=== PATIENT | female | born 1955 | race American Indian/Alaskan Native ===

== ENCOUNTER 2019-08-31 21:20 | Emergency (ER) | payer MEDICARE ==
[2019-08-31] MEDS ORDERED: HYDROmorphone 1 MG/1 ML INJ ONE (21:32)
[2019-08-31] MEDS ORDERED: HYDROmorphone 1 MG/1 ML INJ IV ONE ×2 (21:40→23:55)
[2019-08-31] MEDS ORDERED: ONDANSETRON 4 MG ODT TAB PO PRN (23:03)
[2019-08-31] MEDS ORDERED: ACETAMINOPHEN 325 MG TAB PO PRN (23:03)
[2019-08-31] MEDS ORDERED: IBUPROFEN 400 MG TAB PO PRN (23:03)
--- NOTE | 2019-08-31 23:10 | Emergency Department Report ---
ED General Adult HPI - General Chief complaint: Extremity Injury, Lower Stated complaint: LEG PAIN PUI?: No Time Seen by Provider: 08/31/19 21:27 Source: EMS, RN notes reviewed, old records reviewed Mode of arrival: Stretcher Limitations: Physical Limitation - History of Present Illness Initial comments: Patient is a 63-year-old female. She is not known to myself previously. The patient was recently admitted to this hospital. She has a history of hypertension, type 2 diabetes, obesity, and bilateral total knee replacements, and a chronic pain syndrome. She was recently admitted to this hospital for bilateral femur fractures. She was seen by our orthopedist, Dr. Mccoy, and he surgically fixated the aforementioned fractures. The patient was discharged back to the skilled nursing earlier on today. The patient is sent to the emergency room for unclear reasons with a complaint of bilateral leg pain. The patient indicates the pain has been present for a long time. In addition, as per review of patient's discharge prescriptions, she was discharged with oxycodone, 5/325. The patient was medically cleared and discharged earlier on today. In addition, case management have been following along, and helping to arrange outpatient follow-up. In the emergency room, the patient's chronic pain was treated with hydromorphone which improved her symptoms. Patient was also recently ruled out for COVID at this hospital. Apparently, the receiving skilled nursing is now declining/refusing to take the patient back for unclear reasons, nursing team tells me it is because the patient did not sign consent for treatment. Location: left, right, lower extremity Severity scale (0 -10): 6 Consistency: constant Improves with: medication, rest Worsens with: movement - Related Data Previous Rx's Medication Instructions Recorded Last Taken Type Enoxaparin 40 mg SUB-Q QDAY 42 Days syringe 08/31/19 Unknown Rx Multivitamin Tab [Multiple Vitamin 1 each PO QDAY #30 tablet 08/31/19 Unknown Rx TAB (Theragran)] oxyCODONE /ACETAMINOPHEN [Percocet 1 tab PO Q6H PRN #10 tablet 08/31/19 Unknown Rx 5/325 mg] ALPRAZolam [Xanax TAB] 0.25 mg PO TID PRN #10 tab 09/01/19 Unknown Rx Naproxen [Naprosyn] 500 mg PO BID #10 tablet 09/01/19 Unknown Rx oxyCODONE /ACETAMINOPHEN [Percocet 2 tab PO Q6HR PRN #12 tablet 09/01/19 Unknown Rx 5/325] Allergies Allergy/AdvReac Type Severity Reaction Status Date / Time codeine Allergy Unknown Verified 08/25/19 15:17 lisinopril AdvReac Intermediate Unknown Verified 08/25/19 15:17 ED Review of Systems ROS: Stated complaint: LEG PAIN Other details as noted in HPI Constitutional: denies: fever Musculoskeletal: myalgia ED Past Medical Hx - Past Medical History Hx Hypertension: Yes (+2FS) Hx Diabetes: Yes Additional medical history: rolan knee pain, chronic pain - Surgical History Additional Surgical History: rolan knee replacements - Social History Smoking Status: Current Every Day Smoker Substance Use Type: Alcohol, Marijuana - Medications Home Medications: Home Medications Medication Instructions Recorded Confirmed Last Taken Type Enoxaparin 40 mg SUB-Q QDAY 42 Days syringe 08/31/19 08/31/19 Unknown Rx Multivitamin Tab [Multiple Vitamin 1 each PO QDAY #30 tablet 08/31/19 08/31/19 Unknown Rx TAB (Theragran)] oxyCODONE /ACETAMINOPHEN [Percocet 1 tab PO Q6H PRN #10 tablet 08/31/19 08/31/19 Unknown Rx 5/325 mg] ALPRAZolam [Xanax TAB] 0.25 mg PO TID PRN #10 tab 09/01/19 Unknown Rx Naproxen [Naprosyn] 500 mg PO BID #10 tablet 09/01/19 Unknown Rx oxyCODONE /ACETAMINOPHEN [Percocet 2 tab PO Q6HR PRN #12 tablet 09/01/19 Unknown Rx 5/325] ED Physical Exam - General Limitations: Physical Limitation General appearance: alert, anxious, in distress, obese - Head Head exam: Present: atraumatic, normocephalic - Eye Eye exam: Present: normal appearance, EOMI. Absent: nystagmus - ENT ENT exam: Present: normal exam, normal orophraynx, mucous membranes moist, normal external ear exam - Neck Neck exam: Present: normal inspection, full ROM. Absent: tenderness, meningismus - Respiratory Respiratory exam: Present: normal lung sounds bilaterally. Absent: respiratory distress, wheezes, rales, rhonchi, chest wall tenderness, accessory muscle use, decreased breath sounds, prolonged expiratory - Cardiovascular Cardiovascular Exam: Present: normal rhythm, tachycardia, normal heart sounds. Absent: systolic murmur, diastolic murmur, rubs, gallop - GI/Abdominal GI/Abdominal exam: Present: soft. Absent: distended, tenderness, guarding, rebound, rigid, pulsatile mass - Extremities Exam Extremities exam: Present: normal inspection, normal capillary refill, other (2+ pulses noted in the bilateral upper and lower extremities. There is no redness, pus or streaking. Surgical sites on the bilateral lower extremities appear clean, without redness, pus, streaking or discharge. Patient has bony tenderness over her surgical sites. It is appropriate postoperative tenderness.). Absent: calf tenderness - Back Exam Back exam: Present: normal inspection. Absent: tenderness, CVA tenderness (R), paraspinal tenderness, vertebral tenderness - Neurological Exam Neurological exam: Present: alert, other (No facial droop. Tongue midline. Extraocular movements intact bilaterally. Facial sensation intact to light touch in V1, V2, V3 distribution bilaterally. 5 and a 5 strength in 4 extremities. Sensation intact to light touch in 4 extremities.) - Psychiatric Psychiatric exam: Present: anxious - Skin Skin exam: Present: warm ED Course Vital Signs 08/31/19 08/31/19 08/31/19 21:36 21:37 22:00 Temperature 98.7 F Pulse Rate 105 H 105 H 104 H Respiratory 18 18 18 Rate Blood Pressure 144/66 Blood Pressure 144/66 127/81 [Right] O2 Sat by Pulse 99 99 97 Oximetry 08/31/19 09/01/19 09/01/19 22:21 06:36 12:34 Temperature Pulse Rate 103 H 101 H Respiratory 17 19 18 Rate Blood Pressure Blood Pressure 136/85 113/48 [Right] O2 Sat by Pulse 97 97 Oximetry ED Medical Decision Making - Lab Data Vital Signs 08/31/19 08/31/19 08/31/19 21:36 21:37 22:00 Temperature 98.7 F Pulse Rate 105 H 105 H 104 H Respiratory 18 18 18 Rate Blood Pressure 144/66 Blood Pressure 144/66 127/81 [Right] O2 Sat by Pulse 99 99 97 Oximetry 08/31/19 22:21 Temperature Pulse Rate 103 H Respiratory 17 Rate Blood Pressure Blood Pressure 136/85 [Right] O2 Sat by Pulse 97 Oximetry - Radiology Data Radiology results: report reviewed, image reviewed Print Report Referring Physician: SONI CAMP Patient Name: LA MCKNIGHT Date of : 1955 Sex: Female Report Date: 2019-08-24 Report Status: Finalized Findings [address] [address] XRay Report Signed Patient: LA MCKNIGHT MR#: [id number] 4 : 1955 Acct:[id number] Age/Sex: 63 / F ADM Date: 08/24/19 Loc: ED Attending Dr: Ordering Physician: Soni Jacinto MD Date of Service: 08/24/19 Procedure(s): XR knee BILAT 3V Accession Number(s): [id number] cc: Soni Jacinto MD Fluoro Time In Minutes: BILATERAL KNEES 8 VIEWS INDICATION / CLINICAL INFORMATION: fall bilateral knee pain. COMPARISON: None available. FINDINGS: There are fractures of the distal femurs bilaterally more severe on the left than the right. The left-sided fracture is comminuted and moderately displaced. The right-sided fracture is more linear and moderately displaced. Bilateral knee prostheses are present. Signer Name: Durga Daiz MD FACR Signed: 08/24/2019 9:15 AM Workstation Name: [id number] Transcribed By: MS Dictated By: Durga Diaz MD Electronically Authenticated By: Durga Diaz MD Signed Date/Time: 08/24/19914 DD/ 3 TD/TT: Referring Physician: ANNEMARIE MARRERO Patient Name: LA MCKNIGHT Date of : 1955 Sex: Female Report Date: 2019-09-01 Report Status: Finalized Findings [address] [address] XRay Report Signed with Addenda Patient: LA MCKNIGHT MR#: [id number] 4 : 1955 Acct:[id number] Age/Sex: 63 / F ADM Date: 08/31/19 Loc: ED Attending Dr: Ordering Physician: ANNEMARIE MARRERO MD Date of Service: 08/31/19 Procedure(s): XR femur BILAT 2+V Accession Number(s): [id number] cc: ANNEMARIE MARRERO MD Fluoro Time In Minutes: ADDENDUM The periprosthetic fracture was actually present on a prior radiograph from 08/24/2019. Although the periprosthetic fracture is acute, this is a known finding from the prior exam in the interim medullary abel was placed for interval fixation of the periprosthetic distal femoral fracture. No new fracture is identified when compared to 08/24/2019. Signer Name: Ozzie Interiano MD Signed: 09/01/2019 1:27 AM Workstation Name: [id number] Addendum Transcribed By: TAMARA Addendum Dictated By: Ozzie Interiano MD Addendum Electronically Authenticated By: Ozzie Interiano MD Addendum Signed Date/Time: 09/01/19126 DD/ /15/125 TD/TT: / Left femur 4 views I NDICATION: Left femur pain following injury. IMPRESSION: There is a acute appearing impacted periprosthetic fracture identified involving the distal left femur. Osteopenia. Prominent thinning involving the mid shaft of the femur. Osteopenia. Signer Name: Ozzie Interiano MD Signed: 09/01/2019 12:07 AM Workstation Name: [id number] Transcribed By: Dictated By: Ozzie Interiano MD Electronically Authenticated By: Ozzie Interiano MD Signed Date/Time: 09/01/19 0007 DD/ 0005 TD/TT: - Medical Decision Making Differential diagnosis, including but not limited to: Chronic pain, narcotic dependence, femur fracture, case management patient Assessment and plan: 63-year-old female with chronic pain syndrome, discharged within the past 12 hours from this hospital to an outpatient skilled nursing, who was sent to the emergency room for acute on chronic pain. Old medical records are reviewed, x-rays reviewed, fluoroscopic images reviewed, patient does not appear to have an emergent medical condition at this time, the main issue here appears to be pain control which we have achieved with hydromorphone. Her tachycardia has resolved on my examination. Old x-rays are reviewed, and her exam is not consistent with cellulitis, compartment syndrome. This patient does not have an emergent medical condition at this time, and she does not meet criteria for hospitalization. Nursing team getting in touch with [place] [facility], who is apparently refusing/declining to take the patient back because of signatures on paperwork. We will continue the patient's home medications, case management consultation has been requested. At the moment, the patient is medically suitable for discharge. We will discharge the patient, but case management will need to make appropriate arrangements Critical care attestation.: If time is entered above; I have spent that time in minutes in the direct care of this critically ill patient, excluding procedure time. ED Disposition Clinical Impression: Chronic pain syndrome, Case management patient Bilateral femoral fractures Qualifiers: Encounter type: subsequent encounter Fracture type: closed Fracture healing: with routine healing Qualified Code(s): S72.91XD - Unspecified fracture of right femur, subsequent encounter for closed fracture with routine healing Disposition: DC/TX-70 ANOTHER TYPE HLTHCARE Is pt being admited?: No Does the pt Need Aspirin: No Condition: Stable Additional Instructions: Please continue current outpatient medications. Please follow-up with an outpatient primary care doctor or orthopedist within the next 5 to 7 days. Please return to the emergency room right away with new pain, worsening pain, migration of pain, rectal vomiting, change in mental status, confusion, inability to tolerate liquid feeds, new, worsened or different symptoms not present on the initial emergency room evaluation Referrals: MIKALA MCCOY MD [Staff Physician] - 3-5 Days MAYCO HOLLAND MD [Staff Physician] - 3-5 Days Time of Disposition: 23:12 (d/c to skilled nursing pending case managemtn)
--- NOTE | 2019-09-01 00:11 | XRay Report ---
Left femur 4 views INDICATION: Left femur pain following injury. IMPRESSION: There is a acute appearing impacted periprosthetic fracture identified involving the dist al left femur. Osteopenia. Prominent thinning involving the mid shaft of the femur. Osteopenia. Signer Name: Ozzie Interiano MD Signed: 09/01/2019 12:07 AM Workstation Name: [id number]
[2019-09-01] MEDS: oxyCODONE /ACETAMINOPHEN 5-325MG TAB PO PRN ×3 (00:29→12:34)
[2019-09-01 06:38] VITALS: BP 113/48
[2019-09-01] MEDS ORDERED: ENOXAPARIN 40 MG/0.4 ML INJ SUB-Q SCH (10:00)
[2019-09-01] MEDS ORDERED: MULTIVITAMINS ,THERAPEUTIC TAB PO SCH (10:00)
== END 2019-09-01 15:05 | disposition other institution (70) ==
LOC: ED 21:20
DX: S72.92XD Unspecified fracture of left femur, subsequent encounter for closed fracture with routine healing (principal); S72.91XD Unspecified fracture of right femur, subsequent encounter for closed fracture with routine healing; I10 Essential (primary) hypertension; E11.9 Type 2 diabetes mellitus without complications; F17.200 Nicotine dependence, unspecified, uncomplicated; F12.10 Cannabis abuse, uncomplicated; Z96.653 Presence of artificial knee joint, bilateral; Z79.899 Other long term (current) drug therapy; Z88.8 Allergy status to other drugs, medicaments and biological substances; X58.XXXD Exposure to other specified factors, subsequent encounter
CPT/HCPCS: 73552; 96372; 96374; 96376; 99284; J1170; J1650

== ENCOUNTER 2019-09-28 20:37 | Emergency (ER) | payer MEDICARE ==
--- NOTE | 2019-09-28 21:03 | Emergency Department Report ---
HPI - General Time Seen by Provider: 09/28/19 20:45 - HPI HPI: Room 9 The patient is a 63-year-old female present with a chief complaint of suicidal statement. The patient is a resident at [facility] and states she was frustrated with the nursing staff because she cannot get her medications. She states she told the nurses to roll her outside so she could smoke a cigarette and that she should play in traffic. [facility] to the ED for evaluation. The patient denies suicidal ideation ED Past Medical Hx - Past Medical History Hx Hypertension: Yes (+2FS) Hx Diabetes: Yes Additional medical history: rolan knee pain, chronic pain - Surgical History Additional Surgical History: rolan knee replacements - Family History Family history: no significant - Social History Smoking Status: Current Every Day Smoker Substance Use Type: Alcohol - Medications Home Medications: Home Medications Medication Instructions Recorded Confirmed Last Taken Type Enoxaparin 40 mg SUB-Q QDAY 42 Days syringe 08/31/19 08/31/19 Unknown Rx Multivitamin Tab [Multiple Vitamin 1 each PO QDAY #30 tablet 08/31/19 08/31/19 Unknown Rx TAB (Theragran)] oxyCODONE /ACETAMINOPHEN [Percocet 1 tab PO Q6H PRN #10 tablet 08/31/19 08/31/19 Unknown Rx 5/325 mg] ALPRAZolam [Xanax TAB] 0.25 mg PO TID PRN #10 tab 09/01/19 Unknown Rx Naproxen [Naprosyn] 500 mg PO BID #10 tablet 09/01/19 Unknown Rx oxyCODONE /ACETAMINOPHEN [Percocet 2 tab PO Q6HR PRN #12 tablet 09/01/19 Unknown Rx 5/325] ED Review of Systems ROS: Stated complaint: MEDICAL CLEARANCE Other details as noted in HPI Constitutional: no symptoms reported Respiratory: no symptoms reported Endocrine: no symptoms reported Psychiatric: denies: suicidal thoughts Physical Exam - Physical Exam Physical Exam: GENERAL: The patient is well-developed well-nourished female sitting on stretcher not appearing to be in acute distress. [] HEENT: Normocephalic. Atraumatic. Extraocular motions are intact. Patient has moist mucous membranes. NECK: Supple. Trachea midline CHEST/LUNGS: Clear to auscultation. There is no respiratory distress noted. HEART/CARDIOVASCULAR: Regular. There is no tachycardia. There is no gallop rub or murmur. ABDOMEN: Abdomen is soft, nontender. Patient has normal bowel sounds. There is no abdominal distention. SKIN: There is no rash. There is no edema. There is no diaphoresis. NEURO: The patient is awake, alert, and oriented. The patient is cooperative. The patient has normal speech MUSCULOSKELETAL: There is no evidence of acute injury. ED Medical Decision Making - Lab Data Result diagrams: 09/28/19 21:36 09/28/19 21:36 Laboratory Tests 09/28/19 09/28/19 09/28/19 21:36 21:36 21:36 WBC 6.1 RBC 3.64 L Hgb 9.9 L Hct 30.9 MCV 85 MCH 27 L MCHC 32 RDW 19.4 H Plt Count 361 Lymph % (Auto) 26.2 [place] % (Auto) 10.1 H Eos % (Auto) 3.3 Baso % (Auto) 0.7 Lymph # 1.6 [place] # 0.6 Eos # 0.2 Baso # 0.0 Seg Neutrophils % 59.7 Seg Neutrophils # 3.7 Sodium 142 Potassium 4.2 Chloride 104.6 Carbon Dioxide 24 Anion Gap 18 BUN 12 Creatinine 0.7 Estimated GFR > 60 BUN/Creatinine Ratio 17 Glucose 95 Calcium 8.9 Urine Color Urine Turbidity Urine pH Ur Specific [place] Urine Protein Urine Glucose (UA) Urine Ketones Urine Blood Urine Nitrite Urine Bilirubin Urine Urobilinogen Ur Leukocyte Esterase Urine WBC (Auto) Urine RBC (Auto) U Epithel Cells (Auto) Urine Bacteria (Auto) Urine Mucus Salicylates < 0.3 L Urine Opiates Screen Urine Methadone Screen Acetaminophen Ur Barbiturates Screen Ur Phencyclidine Scrn Ur Amphetamines Screen U Benzodiazepines Scrn Urine Cocaine Screen U Marijuana (THC) Screen Drugs of Abuse Note Plasma/Serum Alcohol 09/28/19 09/28/19 09/28/19 21:36 21:36 Unknown WBC RBC Hgb Hct MCV MCH MCHC RDW Plt Count Lymph % (Auto) [place] % (Auto) Eos % (Auto) Baso % (Auto) Lymph # [place] # Eos # Baso # Seg Neutrophils % Seg Neutrophils # Sodium Potassium Chloride Carbon Dioxide Anion Gap BUN Creatinine Estimated GFR BUN/Creatinine Ratio Glucose Calcium Urine Color Yellow Urine Turbidity Slightly-cloudy Urine pH 5.0 Ur Specific [place] 1.026 Urine Protein <15 mg/dl Urine Glucose (UA) Neg Urine Ketones Neg Urine Blood Neg Urine Nitrite Neg Urine Bilirubin Neg Urine Urobilinogen 2.0 Ur Leukocyte Esterase Neg Urine WBC (Auto) 4.0 Urine RBC (Auto) 3.0 U Epithel Cells (Auto) 8.0 Urine Bacteria (Auto) 1+ Urine Mucus Few Salicylates Urine Opiates Screen Urine Methadone Screen Acetaminophen < 5.0 L Ur Barbiturates Screen Ur Phencyclidine Scrn Ur Amphetamines Screen U Benzodiazepines Scrn Urine Cocaine Screen U Marijuana (THC) Screen Drugs of Abuse Note Plasma/Serum Alcohol < 0.01 09/28/19 Unknown WBC RBC Hgb Hct MCV MCH MCHC RDW Plt Count Lymph % (Auto) [place] % (Auto) Eos % (Auto) Baso % (Auto) Lymph # [place] # Eos # Baso # Seg Neutrophils % Seg Neutrophils # Sodium Potassium Chloride Carbon Dioxide Anion Gap BUN Creatinine Estimated GFR BUN/Creatinine Ratio Glucose Calcium Urine Color Urine Turbidity Urine pH Ur Specific [place] Urine Protein Urine Glucose (UA) Urine Ketones Urine Blood Urine Nitrite Urine Bilirubin Urine Urobilinogen Ur Leukocyte Esterase Urine WBC (Auto) Urine RBC (Auto) U Epithel Cells (Auto) Urine Bacteria (Auto) Urine Mucus Salicylates Urine Opiates Screen Presumptive positive Urine Methadone Screen Presumptive negative Acetaminophen Ur Barbiturates Screen Presumptive negative Ur Phencyclidine Scrn Presumptive negative Ur Amphetamines Screen Presumptive negative U Benzodiazepines Scrn Presumptive positive Urine Cocaine Screen Presumptive negative U Marijuana (THC) Screen Presumptive negative Drugs of Abuse Note Disclamer Plasma/Serum Alcohol - Differential Diagnosis Suicidal ideation, adjustment disorder, anger Critical care attestation.: If time is entered above; I have spent that time in minutes in the direct care of this critically ill patient, excluding procedure time. ED Disposition Clinical Impression: Suicidal ideation Condition: Stable Referrals: MURALI AUGUSTINE MD [Primary Care Provider] - 3-5 Days
[2019-09-28 21:56] LABS: Basophils % (Auto) 0.7 % (0.0-1.8); Eosinophils # (Auto) 0.2 K/mm3 (0.0-0.4); Eosinophils % (Auto) 3.3 % (0.0-4.3); Hematocrit 30.9 % (30.3-42.9); Hemoglobin 9.9 gm/dl (10.1-14.3); Lymphocytes # (Auto) 1.6 K/mm3 (1.2-5.4); Lymphocytes % (Auto) 26.2 % (13.4-35.0); Mean Corpuscular HGB Conc 32 % (30-34); Mean Corpuscular Volume 85 fl (79-97); Monocytes # (Auto) 0.6 K/mm3 (0.0-0.8); Monocytes % (Auto) 10.1 % (0.0-7.3); Platelet Count 361 K/mm3 (140-440); Red Blood Count 3.64 M/mm3 (3.65-5.03); Red Cell Distribution Width 19.4 % (13.2-15.2)
[2019-09-28 22:15] LABS: BUN/Creatinine Ratio 17; Blood Urea Nitrogen 12 mg/dL (7-17); Calcium 8.9 mg/dL (8.4-10.2); Hemolysis Index 4
[2019-09-28] MEDS ORDERED: oxyCODONE /ACETAMINOPHEN 5-325MG TAB PO PRN (22:38)
[2019-09-28 23:28] LABS: Bacteria,Urine 1+ /HPF (Negative); Bilirubin,Urine NEG (Negative); Blood,Urine NEG (Negative); Color,Urine Yellow (Yellow); Mucus,Urine FEW /HPF; Protein,Urine <15 mg/dL mg/dL (Negative)
[2019-09-28 23:34] LABS: Amphetamine Screen,Urine PRESUMPTIVE NEGATIVE; Benzodiazepines Screen,Urine PRESUMPTIVE POSITIVE; Cannabinoid Screen,Urine PRESUMPTIVE NEGATIVE; Cocaine Screen,Urine PRESUMPTIVE NEGATIVE; Methadone Screen,Urine PRESUMPTIVE NEGATIVE; Opiate Screen,Urine PRESUMPTIVE POSITIVE
[2019-09-29 01:40] VITALS: BP 140/73
== END 2019-09-29 04:35 ==
LOC: ED 20:37
DX: R45.851 Suicidal ideations (principal); I10 Essential (primary) hypertension; E11.9 Type 2 diabetes mellitus without complications; F17.200 Nicotine dependence, unspecified, uncomplicated; Z79.899 Other long term (current) drug therapy
CPT/HCPCS: 36415; 80048; 80307; 80320; 81001; 85025; 99283; G0480

== ENCOUNTER 2019-11-16 16:47 | Emergency (ER) | payer MEDICARE ==
[2019-11-16 17:02] VITALS: BP 164/78
--- NOTE | 2019-11-16 18:39 | Emergency Department Report ---
ED General Adult HPI - General Chief complaint: Extremity Injury, Lower Stated complaint: FEET SWELLING Time Seen by Provider: 11/16/19 18:27 Source: patient Mode of arrival: Wheelchair Limitations: No Limitations - History of Present Illness Initial comments: Patient is 64 years old female with history of diabetes, hypertension, obstructive sleep apnea. Patient had a recent bilateral femoral fracture with internal fixation in August. Patient was just discharged from a rehab facility 5 days ago. Patient presented to the ER complaining of bilateral lower extremity swelling. Patient stated the symptoms started just after she was released from that facility. Patient denied any shortness of breath, chest pain, nausea or vomiting. Patient also denied any fever or chills. Severity scale (0 -10): 10 - Related Data Home Medications Medication Instructions Recorded Confirmed Last Taken Sertraline [Zoloft] 100 mg PO QDAY 09/29/19 09/29/19 Unknown Previous Rx's Medication Instructions Recorded Last Taken Type Multivitamin Tab [Multiple Vitamin 1 each PO QDAY #30 tablet 08/31/19 Unknown Rx TAB (Theragran)] Divalproex Dr [Prosper Dr] 750 mg PO BID #180 tablet 10/05/19 Unknown Rx Nicotine [Habitrol] 21 mg TD QDAY #30 patch 10/05/19 Unknown Rx metFORMIN [Glucophage] 500 mg PO BIDDIAB #60 tablet 10/05/19 Unknown Rx risperiDONE [RisperDAL] 1 mg PO BID #60 tablet 10/05/19 Unknown Rx traZODone [Desyrel] 75 mg PO QHS #45 tablet 10/05/19 Unknown Rx Allergies Allergy/AdvReac Type Severity Reaction Status Date / Time codeine Allergy Unknown Verified 08/25/19 15:17 lisinopril AdvReac Intermediate Unknown Verified 08/25/19 15:17 ED Review of Systems ROS: Stated complaint: FEET SWELLING Other details as noted in HPI Comment: All other systems reviewed and negative Constitutional: denies: chills, fever Respiratory: denies: cough, shortness of breath, SOB with exertion, SOB at rest, wheezing Cardiovascular: denies: chest pain, palpitations Gastrointestinal: denies: abdominal pain, nausea, vomiting, diarrhea, constipation, hematemesis, hematochezia Musculoskeletal: denies: back pain Neurological: denies: headache, weakness, numbness, paresthesias, confusion, abnormal gait Psychiatric: denies: depression, auditory hallucinations, visual hallucinations, homicidal thoughts, suicidal thoughts ED Past Medical Hx - Past Medical History Previous Medical History?: Yes Hx Hypertension: Yes (+2FS) Hx Congestive Heart Failure: No Hx Diabetes: Yes Hx Renal Disease: No Hx Arthritis: No Hx Seizures: No Hx Asthma: No Hx COPD: No Hx Dementia: No Additional medical history: rolan knee pain, chronic pain. rolan femur fractures - Surgical History Past Surgical History?: Yes Hx Cholecystectomy: No Hx Appendectomy: No Additional Surgical History: rolan knee replacements - Social History Smoking Status: Current Every Day Smoker Substance Use Type: Alcohol - Medications Home Medications: Home Medications Medication Instructions Recorded Confirmed Last Taken Type Multivitamin Tab [Multiple Vitamin 1 each PO QDAY #30 tablet 08/31/19 09/29/19 Unknown Rx TAB (Theragran)] Sertraline [Zoloft] 100 mg PO QDAY 09/29/19 09/29/[address] [Depakote Dr] 750 mg PO BID #180 tablet 10/05/19 Unknown Rx Nicotine [Habitrol] 21 mg TD QDAY #30 patch 10/05/19 Unknown Rx metFORMIN [Glucophage] 500 mg PO BIDDIAB #60 tablet 10/05/19 Unknown Rx risperiDONE [RisperDAL] 1 mg PO BID #60 tablet 10/05/19 Unknown Rx traZODone [Desyrel] 75 mg PO QHS #45 tablet 10/05/19 Unknown Rx ED Physical Exam - General Limitations: No Limitations General appearance: alert, in no apparent distress - Head Head exam: Present: atraumatic, normocephalic, normal inspection - Eye Eye exam: Present: normal appearance - ENT ENT exam: Present: normal exam, normal orophraynx, mucous membranes moist - Neck Neck exam: Present: normal inspection, full ROM. Absent: tenderness, meningismus, lymphadenopathy, thyromegaly - Respiratory Respiratory exam: Present: normal lung sounds bilaterally - Cardiovascular Cardiovascular Exam: Present: regular rate, normal rhythm, normal heart sounds - GI/Abdominal GI/Abdominal exam: Present: soft, normal bowel sounds. Absent: distended, tenderness, guarding, rebound, rigid, organomegaly, mass, bruit, pulsatile mass, hernia - Extremities Exam Extremities exam: Present: normal inspection, full ROM, normal capillary refill. Absent: tenderness, pedal edema, calf tenderness - Back Exam Back exam: Present: normal inspection, full ROM. Absent: CVA tenderness (R), CVA tenderness (L), muscle spasm, paraspinal tenderness, vertebral tenderness - Neurological Exam Neurological exam: Present: alert, oriented X3, CN II-XII intact - Psychiatric Psychiatric exam: Present: normal mood. Absent: homicidal ideation, suicidal ideation - Skin Skin exam: Present: warm, intact, normal color ED Course Vital Signs 11/16/19 16:59 Temperature 98.0 F Pulse Rate 72 Respiratory 17 Rate Blood Pressure 164/78 [Right] O2 Sat by Pulse 100 Oximetry ED Medical Decision Making - Radiology Data Radiology results: report reviewed - Medical Decision Making Patient is 64 years old female with history of diabetes, hypertension, obstructive sleep apnea. Patient had a recent bilateral femoral fracture with internal fixation in August. Patient was just discharged from a rehab facility 5 days ago. Patient presented to the ER complaining of bilateral lower extremity swelling. Patient stated the symptoms started just after she was released from that facility. Patient denied any shortness of breath, chest pain, nausea or vomiting. Patient also denied any fever or chills. Patient bilateral Doppler ultrasound is negative for DVT. Patient decided to leave [facility] before finishing her work-up. Patient is alert, oriented x3 and able to make a sound decision. Patient did not give any reason why she is leaving. Critical care attestation.: If time is entered above; I have spent that time in minutes in the direct care of this critically ill patient, excluding procedure time. ED Disposition Clinical Impression: Bilateral lower extremity edema Disposition: LEFT AGAINST MED ADVICE Is pt being admited?: No Condition: Stable Instructions: Leg Edema (ED) Forms: AMA Form
--- NOTE | 2019-11-16 20:33 | Vascular Lab Report ---
DUPLEX DOPPLER LOWER EXTREMITY VEINS, BILATERAL INDICATION / CLINICAL INFORMATION: Bilateral lower extremity swelling.. TECHNIQUE: Duplex doppler imaging was performed through the veins of both lower extremities using venous lazarus sheng and other maneuvers. COMPARISON: None available. FINDINGS: RIGHT COMMON FEMORAL VEIN: Negative. RIGHT FEMORAL VEIN: Negative. RIGHT POPLITEAL VEIN: Negative. RIGHT CALF VEINS: Negative. LEFT COMMON FEMORAL VEIN: Negative. LEFT FEMORAL VEIN: Negative. LEFT POPLITEAL VEIN: Negative. LEFT CALF VEINS: Negative. ADDITIONAL FINDINGS: Superficial soft tissue swelling and edema. IMPRESSION: 1. No sonographic evidence for DVT in either lower extremity. Signer Name: Fantasma Pruett MD Signed: 11/16/2019 8:28 PM Workstation Name: [id number]
== END 2019-11-16 19:55 | disposition left against medical advice (07) ==
LOC: ED 16:47
DX: R60.0 Localized edema (principal); I10 Essential (primary) hypertension; E11.9 Type 2 diabetes mellitus without complications; F17.200 Nicotine dependence, unspecified, uncomplicated; G89.29 Other chronic pain; Z79.899 Other long term (current) drug therapy; Z88.6 Allergy status to analgesic agent
CPT/HCPCS: 93970; 99283